=== PATIENT | female | born 1980 | race Caucasian/White ===

== ENCOUNTER 2016-04-15 16:26 | Emergency (ER) | payer MEDICAID ==
--- NOTE | 2016-04-15 16:49 | PD ---
HPI Chief Complaint decels Date Seen: Apr 15, 2016 Time Seen: 16:31 (Csa Boykin MD R1) Travel History International Travel<30 Days: No Contact w/Intl Traveler<30Days: No (Cas Boykin MD R1) History of Present Illness HPI 35 y/o at 39/4 weeks presents after being seen by her OB, Samira Blanc, and saw a variable decel on heart monitoring. Patient states she feels fine. Denies any other complaints/concerns. Denies loss of fluid, vaginal bleeding, contractions. Endorses movement. Denies headaches, changes in vision, leg swelling. Denies chest pain, SOB, abdominal pain, leg pain. Para: 2 : 3 (Cas Boykin MD) History Past Medical History Medical History: Denies Significant Hx (Cas Boykin MD R1) Obstetric History Obstetric History Vaginal delivery, then past due dates No problems during this 2 babies born at term (Cas Boykin MD) Past Surgical History Narrative Surgical (Cas Boykin MD R1) Family History Family History: Negative (Cas Boykin MD) Social History Alcohol Use: No Tobacco Use: No Substance Abuse: No (Cas Boykin MD) Allergies-Medications (Allergen,Severity, Reaction): Coded Allergies: No Known Allergies (Unverified , 04/15/16) Home Meds No Active Prescriptions or Reported Meds Review of Systems General / Constitutional: Weight Gain, No: Fever, Chills Eyes: No: Blurred Vision, Visual changes HENT: No: Headaches, Vertigo Cardiovascular: No: Chest Pain or Discomfort, Palpitations, Syncope Respiratory: No: Cough, Short of Breath Gastrointestinal: No: Nausea, Vomiting, Diarrhea, Abdominal Pain, Constipation Genitourinary: No: Urgency, Frequency, Dysuria, Pelvic Pain, Discharge, Vaginal Bleeding Musculoskeletal: No: Limited ROM, Weakness Skin: No Rash, No Itching Neurologic: No: Weakness, Dizziness, Headache Psychiatric: No: Anxiety, Depression Endocrine: No: Heat Intolerance, Cold Intolerance Hematologic/Lymphatic: No Easy Bruising, No Lymph Node Enlargement (Cas Boykin MD R1) Physical Exam Narrative GENERAL: Well-nourished, well-developed patient. SKIN: Warm and dry. HEAD: Normocephalic and atraumatic. EYES: No scleral icterus. No injection or drainage. ENT: No nasal drainage noted. Mucous membranes pink. Airway patent. NECK: Supple, trachea midline. No JVD. CARDIOVASCULAR: Regular rate and rhythm without murmurs, gallops, or rubs. RESPIRATORY: Breath sounds equal bilaterally. No accessory muscle use. ABDOMEN/GI: Abdomen soft, non-tender, bowel sounds present, no rebound, no guarding Gravid to 39 weeks size Fundal Height: 39 FHT's: Category: [-] Baseline: [-] Reactive: [-] Variability: [-] Decels: [-] EXTREMITIES: No cyanosis or edema. BACK: Nontender without obvious deformity. No CVA tenderness. NEUROLOGICAL: Awake and alert. Motor and sensory grossly within normal limits. Five out of 5 muscle strength in all muscle groups. Normal speech. (Cas Boykin MD R1) Data Data Vital Signs Reviewed: Yes (Cas Boykin MD R1) [facility] Medical Record Reviewed: Yes Interpretation(s) 35 y/o at 39/4 presents from OB office for decel. - heart monitoring for 1 hour - Labor status - Stress test - Hydration - Monitor vitals (Cas Boykin MD R1) Scripts No Active Prescriptions or Reported Meds Attestation Patient seen and examined with the resident under direct supervision agree with the assessment and plan. I suggested to the patient that she needs to be admitted for induction of labor, as per the latest ultrasound the EDC is 1 09/07 consistent with 40 weeks and 6 days of gestation , as per today's ultrasound the fetus measures small for gestational age. Vaginal exam shows cervix is 2 cm dilated 50% efface and -2 station, posterior. Patient is having occasional contractions, the need for induction of labor with Pitocin was discussed with the patient however the patient declined, patient is is instructed to return to labor and delivery if increased contractions, cramping, leakage of fluids, vaginal bleeding, or decreased movements. She is instructed to drink plenty of fluids, keep office appointment as scheduled and monitor kick counts. (Thomas Bryant MD) Cas Boykin MD R1 Apr 15, 2016 16:49 Thomas Bryant MD Apr 15, 2016 17:55
[2016-04-15 17:04] VITALS: BP 120/77; PULSE 103
== END 2016-04-15 18:32 | disposition home or self-care (01) ==
LOC: HOBED 16:26 → UNDOADMIN 17:24 → H2EA 17:24 → HOBED 18:32
DX: O76 Abnormality in fetal heart rate and rhythm complicating labor and delivery (principal); Z3A.34 34 weeks gestation of pregnancy
CPT/HCPCS: 59025

== ENCOUNTER 2016-04-20 08:11 | Inpatient (IN) | payer MEDICAID ==
--- NOTE | 2016-04-20 08:39 | PD ---
HPI Chief Complaint water broke Date Seen: Apr 20, 2016 Time Seen: 08:21 (Cas Boykin MD R1) Travel History International Travel<30 Days: No Contact w/Intl Traveler<30Days: No (Cas Boykin MD R1) History of Present Illness HPI 35 y/o at 40/2 weeks presents after she states her water broke this morning. At 0640 this morning, she states her water broke, has been a slow leak. 30 minutes later, she states she started having occasional contractions. Denies vaginal bleeding. Endorses movement. Denies other concerns/complaints. Follows Samira Blanc for OB. Had appointment on Tuesday, where she states that she was checked at 2-3cm. Denies headaches, changes in vision, leg pain. Denies chest pain, SOB, leg pain. Para: 2 : 3 (Cas Boykin MD R1) History Past Medical History Medical History: Denies Significant Hx (Cas Boykin MD R1) Obstetric History Obstetric History Vaginal delivery; No problems with this Both babies born at term (Cas Boykin MD R1) Past Surgical History Narrative Surgical (Cas Boykin MD R1) Family History Family History: Negative (Cas Boykin MD R1) Social History Alcohol Use: No Tobacco Use: No Substance Abuse: No (Cas Boykin MD R1) Allergies-Medications (Allergen,Severity, Reaction): Coded Allergies: No Known Allergies (Unverified , 04/19/16) Home Meds Active Scripts Simethicone 80 Mg Chw80 Mg PO QID PRN (FLATULENCE) #30 EA Prov:Toñito Ochoa MD R2 04/23/16 Sennosides-Docusate Sodium (Senna Plus 8.6-50 mg)1 Tab Tab2 Tab PO Q12H PRN ( CONSTIPATION) #30 TAB Prov:Toñito Ochoa MD R2 04/23/16 Oxycodone-Acetaminophen 5-325 mg Tab1 Tab PO Q4H PRN (pain) #30 TAB Prov:Toñito Ochoa MD R2 04/23/16 Ibuprofen 600 Mg [id number] Mg PO Q6H PRN ( CRAMPING) #30 TAB Prov:Toñito Ochoa MD R2 04/23/16 Review of Systems General / Constitutional: Weight Gain, No: Fever, Weight Loss, Chills Eyes: No: Blurred Vision, Visual changes HENT: No: Headaches, Lightheadedness Cardiovascular: No: Irregular Rhythm, Chest Pain or Discomfort, Palpitations, Edema Respiratory: No: Cough, Short of Breath Gastrointestinal: No: Nausea, Vomiting, Diarrhea, Abdominal Pain, Constipation Genitourinary: Pelvic Pain, No: Urgency, Frequency, Dysuria, Discharge, Vaginal Bleeding Musculoskeletal: No: Limited ROM, Weakness Skin: No Rash, No Itching Neurologic: No: Weakness, Dizziness, Syncope Psychiatric: No: Anxiety, Depression Endocrine: No: Heat Intolerance, Cold Intolerance Hematologic/Lymphatic: No Easy Bruising, No Lymph Node Enlargement (Cas Boykin MD R1) Physical Exam Narrative GENERAL: Well-nourished, well-developed patient. SKIN: Warm and dry. HEAD: Normocephalic and atraumatic. EYES: No scleral icterus. No injection or drainage. ENT: No nasal drainage noted. Mucous membranes pink. Airway patent. NECK: Supple, trachea midline. No JVD. CARDIOVASCULAR: Regular rate and rhythm without murmurs, gallops, or rubs. RESPIRATORY: Breath sounds equal bilaterally. No accessory muscle use. ABDOMEN/GI: Abdomen soft, non-tender, bowel sounds present, no rebound, no guarding Gravid to 40 weeks size Fundal Height: 40 GENITOURINARY: Dilatation: 5 Effacement: 80% Station: -2 Presentation: vertex Membranes: ruptured. meconium stained Uterine Contractions: occasional FHT's: Category: 3 Baseline: 130 Reactive: yes Variability: moderate Decels: variable decels EXTREMITIES: No cyanosis or edema. BACK: Nontender without obvious deformity. No CVA tenderness. NEUROLOGICAL: Awake and alert. Motor and sensory grossly within normal limits. Five out of 5 muscle strength in all muscle groups. Normal speech. (Cas Boykin MD R1) Data Data Orders Vital Signs (Adult) .ON ADMISSION (04/20/16 08:26) ^ Labor Status (04/20/16 08:26) Pamg-1 Test .ONCE (04/20/16 08:26) (Csa Boykin MD R1) [facility] Medical Record Reviewed: Yes Interpretation(s) 35 y/o at 40/2 weeks presents with loss of fluids 1) IUP with possible ROM - Amniosure - heart monitoring - Monitor vitals Narrative Course / MDM Meconium stained fluid. On heart tracing, several variable decels. Category 3 tracing. Will admit and going to stat for concerning FHT (Cas Boykin MD R1) Diagnosis Diagnosis: Primary Impression: Variable heart rate decelerations, antepartum Scripts Simethicone 80 Mg Chw80 Mg PO QID PRN (FLATULENCE) #30 EA Prov:Toñito Ochoa MD R2 04/23/16 Sennosides-Docusate Sodium (Senna Plus 8.6-50 mg)1 Tab Tab2 Tab PO Q12H PRN ( CONSTIPATION) #30 TAB Prov:Toñito Ochoa MD R2 04/23/16 Oxycodone-Acetaminophen 5-325 mg Tab1 Tab PO Q4H PRN (pain) #30 TAB Prov:Toñito Ochoa MD R2 04/23/16 Ibuprofen 600 Mg [id number] Mg PO Q6H PRN ( CRAMPING) #30 TAB Prov:Toñito Ochoa MD R2 04/23/16 Attestation Patient seen and evaluated with the resident under direct supervision, I agree with the assessment and plan. (Thomas Bryant MD) Cas Boykin MD R1 Apr 20, 2016 08:39 Thomas Bryant MD Apr 25, 2016 20:36
[2016-04-20] MEDS ORDERED: LACTATED RINGER'S 1000 ML INJ 1,000 ML IV SCH ×3 (08:56→15:59)
[2016-04-20] MEDS ORDERED: LACTATED RINGER'S 1000 ML INJ 1,000 ML IV PRN (08:56)
[2016-04-20] MEDS ORDERED: SODIUM CHLORID 0.9% 500 ML INJ 500 ML IV PRN (09:00)
[2016-04-20] MEDS ORDERED: LIDOCAINE HCL 1% 50 ML VIAL I-DERMAL PRN (09:00)
[2016-04-20] MEDS ORDERED: OXYTOCIN 30 UNITS-500ML PREMIX 500 ML IV ONE ×2 (09:00→11:00)
[2016-04-20] MEDS ORDERED: CITRIC ACID-SODIUM CITRATE LIQ 30 ML UDC PO SCH (09:00)
[2016-04-20] MEDS ORDERED: LIDOCAINE HCL 1% 50 ML VIAL INFIL PRN (09:00)
[2016-04-20] MEDS ORDERED: MINERAL OIL 10 ML VIAL TOPICAL PRN (09:00)
[2016-04-20] MEDS ORDERED: SODIUM CHLOR 0.9% 1000 ML INJ 1,000 ML IV PRN (09:16)
[2016-04-20] MEDS ORDERED: OXYTOCIN 10 UNIT/ML AMP ONE (09:48)
[2016-04-20] MEDS ORDERED: MORPHINE SULFATE PF 5 MG/10 ML VIAL ONE (09:48)
[2016-04-20] MEDS ORDERED: ACETAMINOPHEN 1000 MG/100 ML VIAL IV ONE ×2 (09:48→11:00)
[2016-04-20] MEDS ORDERED: ONDANSETRON HCL 4 MG/2 ML VIAL ONE (09:48)
[2016-04-20] MEDS ORDERED: EPIDURAL-NALOXONE HCL 0.4 MG/ML AMP IV PRN (09:50)
[2016-04-20] MEDS ORDERED: EPIDURAL-DIPHENHYDRAMINE HCL 50 MG CAP PO PRN (09:50)
[2016-04-20] MEDS ORDERED: EPIDURAL-DIPHENHYDRAMINE HCL 50 MG/ML VIAL IV PUSH PRN (09:50)
[2016-04-20] MEDS ORDERED: EPIDURAL-NO SYSTEMIC NARCOTICS XX PRN (09:50)
[2016-04-20] MEDS ORDERED: EPIDURAL-DO NOT ADMINISTER ANTICOAGULANTS XX PRN (09:50)
[2016-04-20 09:59] LABS: AUTOMATED NEUTROPHIL # 8.2 TH/MM3 (1.8-7.7); BASOPHIL # 0.1 TH/MM3 (0-0.2); BASOPHIL % 0.7 % (0.0-2.0); EOSINOPHIL % 0.2 % (0.0-4.0); HEMATOCRIT 34.7 % (35.0-46.0); LYMPHOCYTE # 1.9 TH/MM3 (1.0-4.8); MEAN CELL VOLUME 88.1 FL (80.0-100.0); MEAN CORPUSCULAR HGB CONC 31.8 % (32.0-36.0); MONO % 7.5 % (0.0-8.0); NEUT % 74.6 % (16.0-70.0); PLATELET COUNT 184 TH/MM3 (150-450); RED BLOOD COUNT 3.94 MIL/MM3 (4.00-5.30); RED CELL DISTRIBUTION WIDTH 14.8 % (11.6-17.2)
[2016-04-20] MEDS ORDERED: LACTATED RINGER'S 1000 ML INJ 1,000 ML IV ONE (10:00)
[2016-04-20 10:03] LABS: HEMO FLAGS AUTO DIFF
[2016-04-20 10:29] LABS: BANDS 5 % (0-6); EOSINOPHILS 1 % (0-4); NEUTROPHIL # MANUAL DIFF 7.9 TH/MM3 (1.8-7.7); POLYS (SEG NEUTROPHILS) 67 % (16-70); WBC DIFF SAMPLE 100
[2016-04-20 10:30] LABS: PLATELET ESTIMATE SMEAR NORMAL (NORMAL); PLATELET MORPHOLOGY ENLARGED (NORMAL); SCAN/DIFF FINAL DIFF MANUAL
[2016-04-20] MEDS ORDERED: ceFAZolin 2 GM PREMIX 50 ML IV SCH (10:45)
[2016-04-20] MEDS ORDERED: SODIUM CHLORIDE 0.9% FLUSH 5 ML FLUSH IV PRN (11:00)
[2016-04-20] MEDS ORDERED: SODIUM CHLORIDE 0.9% FLUSH 5 ML FLUSH IV SCH (11:00)
[2016-04-20] MEDS ORDERED: SIMETHICONE 80 MG CHEWABLE TAB PO PRN (11:00)
[2016-04-20] MEDS ORDERED: ONDANSETRON HCL 4 MG/2 ML VIAL IV PUSH PRN (11:00)
[2016-04-20] MEDS ORDERED: ACETAMINOPHEN 325 MG TAB PO PRN (11:00)
--- NOTE | 2016-04-20 11:26 | PD.OP ---
Operative Report Date of Surgery: Apr 20, 2016 Preoperative Diagnosis: (1) 40 weeks gestation of (2) Non-reassuring heart rate or rhythm affecting mother (3) Thick meconium stained amniotic fluid (4) PROM with onset of labor within 24 hours of rupture (5) History of section, low transverse 35-year-old at 40 weeks and 2 days of gestation in active labor Premature rupture of membranes History of previous section 1, desires TOLAC Nonreassuring heart tracing Thick meconium stained amniotic fluid Postoperative Diagnosis: (1) 40 weeks gestation of (2) Non-reassuring heart rate or rhythm affecting mother (3) Thick meconium stained amniotic fluid (4) PROM with onset of labor within 24 hours of rupture (5) History of section, low transverse (6) Umbilical cord around body Term at 40 weeks and 2 days of gestation in active labor Nonreassuring heart tracing History of previous section 1, desires TOLAC Thick meconium-stained amniotic fluid Premature rupture of membranes Umbilical cord around the body Procedure: Repeat low segment transverse section via Pfannenstiel skin incision Anesthesia: Spinal Anesthesiologist: Hema padilla (CENA) Surgeon: Thomas Bryant M.D Yarn Spinner(s): Nancy (surgical aides teacher) Resident Surgeon: None Operation and Findings: Estimated blood loss: 600 mL, urine output is 100 mL of clear urine at the end of the procedure, IV fluids: 1500 mL of Ringer's lactate Complications: None Specimens: Placenta removed and sent to pathology. Findings: Live male in cephalic presentation, Apgars 8 at 1 minute and 9 at 5 minutes, nursery team present at delivery, weight 3605 g, 7 lbs. 15oz. Time of delivery 10:05 hours. Normal uterus, tubes, and ovaries. Indications: 35-year-old 002 at 40 weeks and 2 day of gestation with history of previous section, presented to labor and delivery with complaints of leakage of fluid, examination shows cervix is 5 cm dilated, 80% effaced at -2 station, patient is grossly ruptured with meconium amniotic fluid and trever every 2-3 at minutes with repetitive variable decelerations to the 60s with every contractions with no recovery to the baseline despite resuscitative measures consistent with category 3 tracing. Patient had desired trial of labor after however due to repetitive variable decelerations/ category 3 tracing the need for a repeat section was discussed with the patient and her The risks,benefits, indications and alternatives were reviewed with the patient including but not limited to increased risks of bleeding, infection, damage to the bladder, bowel, ureters, blood vessels and nerves. Increased risks of DVT, PE and possible were discussed, all questions were answered and informed consent was obtained. Procedures: After informed consent was obtained the patient was taken to the operating room where spinal anesthesia was obtained without difficulty. She was then prepped and draped in the normal sterile fashion in the dorsal supine position with a leftward tilt. A repeat Pfannenstiel skin incision was then made with the scalpel along the previous line of incision and carried through to the underlying layer of fascia with the Bovie. The fascia was incised in the midline and incision extended laterally with the Meneses scissors. The superior aspect of the fascial incision was then grasped with Mary clamps, elevated, and the underlying rectus muscles dissected off bluntly. Attention was then turned to the inferior aspect of this incision which in in a similar fashion was grasped, tented up with the Mary clamps and the rectus muscle dissected off bluntly. The rectus muscles were then in the midline and the peritoneum identified, tented up, and entered sharply with the Metzenbaum scissors. The peritoneal incision was then extended superiorly and inferiorly with good visualization of the bladder. The bladder blade was then inserted and the vesicouterine peritoneum identified, grasped with the pickups, and entered sharply with the Metzenbaum scissors. This incision was then extended laterally and the bladder flap created digitally. The bladder blade was then reinserted and the lower uterine segment incised in a transverse fashion with the scalpel. The uterine incision was then extended laterally with the bandage scissors. The bladder blade was removed and the 's head was delivered atraumatically. Body cord was noted as well as thick meconium amniotic fluid. The mouth and nose were suctioned with a bulb suction and the cord was clamped and cut. The was handed off to the waiting nursing team. Cord blood was obtained. The placenta was then removed manually, the uterus was externalized and cleared of all clots and debris. The uterine incision was repaired with 0 Vicryl in a running locked fashion. A second layer of the same suture was used to obtain excellent hemostasis. The bladder flap was repaired with 3-0 Vicryl in a running stitch. Excellent hemostasis was noted, the uterus and the tubes were then returned to the abdomen. The gutters were cleared of all clots and debris and the peritoneum was closed with the 2-0 chromic suture. The fascia was reapproximated with 0 Vicryl in a running fashion. The skin was closed in a subcuticular fashion using 3-0 Monocryl. Dermabond was applied to the incision as well as Steri-Strips. The patient tolerated the procedure well. All sponges, laps, needle and instrument counts were correct 2. The patient received 2 g of Ancef prior to surgery. The patient was taken to the recovery area in stable condition. Thomas Bryant MD Apr 20, 2016 11:26
--- NOTE | 2016-04-20 11:44 | HHI.HP ---
History & Physical H&P HPI Chief Complaint water broke Date Seen: Apr 20, 2016 Time Seen: 08:21 Travel History International Travel<30 Days: No Contact w/Intl Traveler<30Days: No History of Present Illness HPI 35 y/o at 40/2 weeks presents after she states her water broke this morning. At 0640 this morning, she states her water broke, has been a slow leak. 30 minutes later, she states she started having occasional contractions. Denies vaginal bleeding. Endorses movement. Denies other concerns/complaints. Follows Samira Blanc for OB. Had appointment on Tuesday, where she states that she was checked at 2-3cm. Denies headaches, changes in vision, leg pain. Denies chest pain, SOB, leg pain. Para: 2 : 3 History (Limited) History Past Medical History Medical History: Denies Significant Hx Obstetric History Obstetric History Vaginal delivery; No problems with this Both babies born at term Past Surgical History Narrative Surgical Family History Family History: Negative Social History Alcohol Use: No Tobacco Use: No Substance Abuse: No Allergies-Medications Allergies-Medications (Allergen,Severity, Reaction): Coded Allergies: No Known Allergies (Unverified , 04/19/16) Home Meds No Active Prescriptions or Reported Meds ROS Review of Systems General / Constitutional: Weight Gain, No: Fever, Weight Loss, Chills Eyes: No: Blurred Vision, Visual changes HENT: No: Headaches, Lightheadedness Cardiovascular: No: Irregular Rhythm, Chest Pain or Discomfort, Palpitations, Edema Respiratory: No: Cough, Short of Breath Gastrointestinal: No: Nausea, Vomiting, Diarrhea, Abdominal Pain, Constipation Genitourinary: Pelvic Pain, No: Urgency, Frequency, Dysuria, Discharge, Vaginal Bleeding Musculoskeletal: No: Limited ROM, Weakness Skin: No Rash, No Itching Neurologic: No: Weakness, Dizziness, Syncope Psychiatric: No: Anxiety, Depression Endocrine: No: Heat Intolerance, Cold Intolerance Hematologic/Lymphatic: No Easy Bruising, No Lymph Node Enlargement Physical Exam Physical Exam Narrative GENERAL: Well-nourished, well-developed patient. SKIN: Warm and dry. HEAD: Normocephalic and atraumatic. EYES: No scleral icterus. No injection or drainage. ENT: No nasal drainage noted. Mucous membranes pink. Airway patent. NECK: Supple, trachea midline. No JVD. CARDIOVASCULAR: Regular rate and rhythm without murmurs, gallops, or rubs. RESPIRATORY: Breath sounds equal bilaterally. No accessory muscle use. ABDOMEN/GI: Abdomen soft, non-tender, bowel sounds present, no rebound, no guarding Gravid to 40 weeks size Fundal Height: 40 GENITOURINARY: Dilatation: 5 Effacement: 80% Station: -2 Presentation: vertex Membranes: ruptured. meconium stained Uterine Contractions: occasional FHT's: Category: 3 Baseline: 130 Reactive: yes Variability: moderate Decels: variable decels EXTREMITIES: No cyanosis or edema. BACK: Nontender without obvious deformity. No CVA tenderness. NEUROLOGICAL: Awake and alert. Motor and sensory grossly within normal limits. Five out of 5 muscle strength in all muscle groups. Normal speech. Data Data Data Orders Vital Signs (Adult) .ON ADMISSION (04/20/16 08:26) ^ Labor Status (04/20/16 08:26) Pamg-1 Test .ONCE (04/20/16 08:26) [facility] Medical Record Reviewed: Yes Interpretation(s) 35 y/o at 40/2 weeks presents with loss of fluids 1) IUP with possible ROM - Amniosure - heart monitoring - Monitor vitals Narrative Course / MDM Meconium stained fluid. On heart tracing, several variable decels. Category 3 tracing. Will admit and going to stat for concerning FHT Diagnosis Diagnosis: Primary Impression: Variable heart rate decelerations, antepartum Scripts No Active Prescriptions or Reported Meds (Cas Boykin MD R1) Attestation Patient seen and evaluated with the resident under direct supervision, I agree with the assessment and plan. (Thomas Bryant MD) Cas Boykin MD R1 Apr 20, 2016 11:43 Thomas Bryant MD Apr 25, 2016 20:48
[2016-04-20] MEDS ORDERED: KETOROLAC TROMETHAMINE 60 MG/2 ML (IM) VIAL IM PRN (12:00)
[2016-04-20] MEDS: ACETAMINOPHEN 1000 MG/100 ML VIAL IV SCH (17:43)
[2016-04-20] MEDS ORDERED: OXYTOCIN 30 UNITS-500ML PREMIX 500 ML IV PRN (21:00)
[2016-04-21] MEDS: ACETAMINOPHEN 1000 MG/100 ML VIAL IV SCH ×2 (02:00→10:00)
[2016-04-21 06:02] LABS: AUTOMATED NEUTROPHIL # 8.7 TH/MM3 (1.8-7.7); BASOPHIL % 0.2 % (0.0-2.0); EOSINOPHIL # 0.1 TH/MM3 (0-0.4); EOSINOPHIL % 0.5 % (0.0-4.0); HEMATOCRIT 25.9 % (35.0-46.0); HEMO FLAGS DIFF FINAL; LYMPH % 14.7 % (9.0-44.0); LYMPHOCYTE # 1.7 TH/MM3 (1.0-4.8); MEAN CELL VOLUME 87.6 FL (80.0-100.0); MEAN CORPUSCULAR HGB CONC 33.1 % (32.0-36.0); MONO % 10.6 % (0.0-8.0); PLATELET COUNT 143 TH/MM3 (150-450); RED BLOOD COUNT 2.95 MIL/MM3 (4.00-5.30); WHITE BLOOD COUNT 11.7 TH/MM3 (4.0-11.0)
[2016-04-21] MEDS: IBUPROFEN 600 MG TAB PO PRN ×2 (06:13→17:25)
[2016-04-21] MEDS: DOCUSATE SODIUM 50 MG/SENNA 8.6 MG TAB PO PRN ×2 (06:14→18:25)
[2016-04-21] MEDS: oxyCODONE/ACETAMINOPHEN 5 MG/325 MG TAB PO PRN ×4 (06:14→21:17)
--- NOTE | 2016-04-21 08:42 | HHI.OB ---
Subjective Post Operative Day: 1 Remarks Postoperative day number 1. AFVSS overnight. Pain controlled with medications. Incision not draining. Decreased lochia. Denies dysuria. No breast tenderness. She is feeding the baby via breast. Appetite good. No nausea or vomiting. Endorses flatus. Denies bowel movement. Ambulating well. Denies calf pain, shortness of breath, or cough. Otherwise, she is doing well this morning and has no other complaints. Objective Vitals/I&O Vital Signs Date Time Temp Pulse Resp B/P Pulse Ox O2 Delivery O2 Flow Rate FiO2 04/21/16 02:16 Result Diagram: 04/21/16 0527 Objective Remarks GENERAL: Well-nourished, well-developed patient. CARDIOVASCULAR: Regular rate and rhythm without murmurs, gallops, or rubs. RESPIRATORY: Breath sounds equal bilaterally. No accessory muscle use. ABDOMEN/GI: Abdomen soft, non-tender, bowel sounds present. Incision: Clean, dry and intact. Fundus: Firm, non-tender at umbilicus. GENITOURINARY: Light to moderate bleeding. EXTREMITIES: No cyanosis or edema, non-tender, without signs of DVT. Medications and IVs Current Medications Medications (Trade) Dose Ordered Sig/Ciarra Route Start Time Stop Time Status Last Admin Lactated Ringer's 1,000 ml @ 3,000 mls/hr Q20M PRN IV 04/20/16 08:56 Sodium Chloride 500 ml @ 1,000 mls/hr ONCE PRN IV 04/20/16 09:00 04/21/16 08:59 (NS 1000 ml Inj) 1,000 ml @ 100 mls/hr Q10H PRN IV 04/20/16 09:16 (fentaNYL INJ) 50 mcg Q1H PRN IV PUSH 04/20/16 09:00 (fentaNYL INJ) 100 mcg Q1H PRN IV PUSH 04/20/16 09:00 Mineral Oil 10 ml 10 ml UNSCH PRN TOPICAL 04/20/16 09:00 Lactated Ringer's 1,000 ml @ 150 mls/hr Q6H40M IV 04/20/16 10:00 04/20/16 10:00 (Lr 1000 ml Inj) 1,000 ml @ 100 mls/hr Q10H IV 04/20/16 15:59 04/21/16 11:58 04/20/16 17:44 (NS Flush) 2 ml BID IV 04/20/16 11:00 (NS Flush) 2 ml UNSCH PRN IV 04/20/16 11:00 (Mylicon Chew) 80 mg QID PRN PO 04/20/16 11:00 (Tylenol) 650 mg Q6H PRN PO 04/20/16 11:00 (Motrin) 600 mg Q6H PRN PO 04/20/16 11:00 04/21/16 06:13 (Toradol Inj) 30 mg Q6H PRN IM 04/20/16 12:00 04/21/16 11:59 (Percocet 5-325 Mg) 1 tab Q4H PRN PO 04/20/16 11:00 (Percocet 5-325 Mg) 2 tab Q4H PRN PO 04/20/16 11:00 04/21/16 06:14 (Charla-Colace) 2 tab Q12H PRN PO 04/20/16 11:00 04/21/16 06:14 (M-M-R Ii Inj) 0.5 ml ONCE ONCE SQ 04/21/16 16:00 04/21/16 16:01 (Boostrix Inj) 0.5 ml ONCE ONCE IM 04/21/16 16:00 04/21/16 16:01 (Zofran Inj) 4 mg Q6H PRN IV PUSH 04/20/16 11:00 (Ofirmev Inj) 1,000 mg Q8H IV 04/20/16 18:00 04/21/16 10:01 04/21/16 02:00 Miscellaneous Information NO SYSTEMIC NARCOTICS TO BE GIVEN FO... UNSCH PRN XX 04/20/16 09:50 04/21/16 09:49 (Narcan Inj) 0.4 mg UNSCH PRN IV 04/20/16 09:50 04/21/16 09:49 (Benadryl Inj) 25 mg Q6H PRN IV PUSH 04/20/16 09:50 04/21/16 09:49 (Benadryl) 50 mg Q6H PRN PO 04/20/16 09:50 04/21/16 09:49 Miscellaneous Information ALL NURSING DEPARTMENTS UNSCH PRN XX 04/20/16 09:50 04/21/16 09:49 (Flu (Quadrivalent) Vaccine Inj) 0.5 ml ONCE ONCE IM 04/21/16 10:00 04/21/16 10:01 Assessment/Plan Assessment and Plan 35y/o female who is POD#1 s/p CXN. -Continue routine care. -Percocet and Motrin PRN pain. -Encouraged OOB. Advised pelvic rest for 6 wks. Will need a f/u appt. in 1 wk for incision check. -Re: ctrl, she is undecided -D/c in 1-2 more days. wdw OB attending Discharge Planning 1-2 days Cas Boykin MD R1 Apr 21, 2016 08:42
--- NOTE | 2016-04-21 09:10 | HHI.OB ---
Subjective Post Operative Day: 1 Remarks This patient is postop day 1 from repeat for nonreassuring heart rate tracing. She is currently doing well and is just dry bowel sounds somewhat decreased uterus at the umbilicus. The patient to have progressive advancement diet and ambulation and have a postop assessment in the usual fashion, she was seen today with the family medicine residents and agree with their assessment and plan Objective Vitals/I&O Vital Signs Date Time Temp Pulse Resp B/P Pulse Ox O2 Delivery O2 Flow Rate FiO2 04/21/16 02:16 Result Diagram: 04/21/16 0527 Objective Remarks GENERAL: Well-nourished, well-developed patient. CARDIOVASCULAR: Regular rate and rhythm without murmurs, gallops, or rubs. RESPIRATORY: Breath sounds equal bilaterally. No accessory muscle use. ABDOMEN/GI: Abdomen soft, non-tender, bowel sounds present. Incision: Clean, dry and intact. Fundus: Firm, non-tender at umbilicus. GENITOURINARY: Light to moderate bleeding. EXTREMITIES: No cyanosis or edema, non-tender, without signs of DVT. Medications and IVs Current Medications Medications (Trade) Dose Ordered Sig/Ciarra Route Start Time Stop Time Status Last Admin Lactated Ringer's 1,000 ml @ 3,000 mls/hr Q20M PRN IV 04/20/16 08:56 (NS 1000 ml Inj) 1,000 ml @ 100 mls/hr Q10H PRN IV 04/20/16 09:16 (fentaNYL INJ) 50 mcg Q1H PRN IV PUSH 04/20/16 09:00 (fentaNYL INJ) 100 mcg Q1H PRN IV PUSH 04/20/16 09:00 Mineral Oil 10 ml 10 ml UNSCH PRN TOPICAL 04/20/16 09:00 Lactated Ringer's 1,000 ml @ 150 mls/hr Q6H40M IV 04/20/16 10:00 04/20/16 10:00 (Lr 1000 ml Inj) 1,000 ml @ 100 mls/hr Q10H IV 04/20/16 15:59 04/21/16 11:58 04/20/16 17:44 (NS Flush) 2 ml BID IV 04/20/16 11:00 (NS Flush) 2 ml UNSCH PRN IV 04/20/16 11:00 (Mylicon Chew) 80 mg QID PRN PO 04/20/16 11:00 (Tylenol) 650 mg Q6H PRN PO 04/20/16 11:00 (Motrin) 600 mg Q6H PRN PO 04/20/16 11:00 04/21/16 06:13 (Toradol Inj) 30 mg Q6H PRN IM 04/20/16 12:00 04/21/16 11:59 (Percocet 5-325 Mg) 1 tab Q4H PRN PO 04/20/16 11:00 (Percocet 5-325 Mg) 2 tab Q4H PRN PO 04/20/16 11:00 04/21/16 06:14 (Charla-Colace) 2 tab Q12H PRN PO 04/20/16 11:00 04/21/16 06:14 (M-M-R Ii Inj) 0.5 ml ONCE ONCE SQ 04/21/16 16:00 04/21/16 16:01 (Boostrix Inj) 0.5 ml ONCE ONCE IM 04/21/16 16:00 04/21/16 16:01 (Zofran Inj) 4 mg Q6H PRN IV PUSH 04/20/16 11:00 (Ofirmev Inj) 1,000 mg Q8H IV 04/20/16 18:00 04/21/16 10:01 04/21/16 02:00 Miscellaneous Information NO SYSTEMIC NARCOTICS TO BE GIVEN FO... UNSCH PRN XX 04/20/16 09:50 04/21/16 09:49 (Narcan Inj) 0.4 mg UNSCH PRN IV 04/20/16 09:50 04/21/16 09:49 (Benadryl Inj) 25 mg Q6H PRN IV PUSH 04/20/16 09:50 04/21/16 09:49 (Benadryl) 50 mg Q6H PRN PO 04/20/16 09:50 04/21/16 09:49 Miscellaneous Information ALL NURSING DEPARTMENTS UNSCH PRN XX 04/20/16 09:50 04/21/16 09:49 (Flu (Quadrivalent) Vaccine Inj) 0.5 ml ONCE ONCE IM 04/21/16 10:00 04/21/16 10:01 Assessment/Plan Assessment and Plan 35y/o female who is POD#1 s/p CXN. -Continue routine care. -Percocet and Motrin PRN pain. -Encouraged OOB. Advised pelvic rest for 6 wks. Will need a f/u appt. in 1 wk for incision check. -Re: ctrl, she is undecided -D/c in 1-2 more days. wdw OB attending Discharge Planning 1-2 days Jadon Mendosa II, MD Apr 21, 2016 09:10
[2016-04-21] MEDS ORDERED: INFLUENZA VIRUS VACCINE (QUADRIVALENT) 0.5 ML SYR IM ONE (10:00)
[2016-04-21] MEDS ORDERED: MEASLES, MUMPS, RUBELLA VACCINE 0.5 ML VIAL SQ ONE (16:00)
[2016-04-21] MEDS ORDERED: DIPHTH/TETANUS/ACEL PERTUSSIS (BOOSTER) 0.5 ML VIAL/PFS IM ONE (16:00)
[2016-04-22] MEDS: IBUPROFEN 600 MG TAB PO PRN ×3 (00:17→15:47)
[2016-04-22] MEDS: oxyCODONE/ACETAMINOPHEN 5 MG/325 MG TAB PO PRN ×3 (06:41→20:02)
--- NOTE | 2016-04-22 08:56 | HHI.OB ---
Subjective Post Operative Day: 2 Remarks Postoperative day number 2. AFVSS overnight. Pain controlled with medications. Incision not draining. Decreased lochia. Denies dysuria. No breast tenderness. She is feeding the baby via breast. Appetite good. No nausea or vomiting. Endorses flatus. Endorses bowel movement. Ambulating well. Denies calf pain, shortness of breath, or cough. Otherwise, she is doing well this morning and has no other complaints. Objective Result Diagram: 04/21/16 0590 Objective Remarks GENERAL: Well-nourished, well-developed patient. CARDIOVASCULAR: Regular rate and rhythm without murmurs, gallops, or rubs. RESPIRATORY: Breath sounds equal bilaterally. No accessory muscle use. ABDOMEN/GI: Abdomen soft, non-tender, bowel sounds present. Incision: Clean, dry and intact. Fundus: Firm, non-tender at umbilicus. GENITOURINARY: Light to moderate bleeding. EXTREMITIES: No cyanosis or edema, non-tender, without signs of DVT. Medications and IVs Current Medications Medications (Trade) Dose Ordered Sig/Ciarra Route Start Time Stop Time Status Last Admin Lactated Ringer's 1,000 ml @ 3,000 mls/hr Q20M PRN IV 04/20/16 08:56 (NS 1000 ml Inj) 1,000 ml @ 100 mls/hr Q10H PRN IV 04/20/16 09:16 (fentaNYL INJ) 50 mcg Q1H PRN IV PUSH 04/20/16 09:00 (fentaNYL INJ) 100 mcg Q1H PRN IV PUSH 04/20/16 09:00 Mineral Oil 10 ml 10 ml UNSCH PRN TOPICAL 04/20/16 09:00 (Lr 1000 ml Inj) 1,000 ml @ 150 mls/hr Q6H40M IV 04/20/16 10:00 04/20/16 10:00 (NS Flush) 2 ml BID IV 04/20/16 11:00 (NS Flush) 2 ml UNSCH PRN IV 04/20/16 11:00 (Mylicon Chew) 80 mg QID PRN PO 04/20/16 11:00 (Tylenol) 650 mg Q6H PRN PO 04/20/16 11:00 (Motrin) 600 mg Q6H PRN PO 04/20/16 11:00 04/22/16 08:00 (Percocet 5-325 Mg) 1 tab Q4H PRN PO 04/20/16 11:00 04/22/16 06:41 (Percocet 5-325 Mg) 2 tab Q4H PRN PO 04/20/16 11:00 04/21/16 10:54 (Charla-Colace) 2 tab Q12H PRN PO 04/20/16 11:00 04/21/16 18:25 (Zofran Inj) 4 mg Q6H PRN IV PUSH 04/20/16 11:00 Assessment/Plan Assessment and Plan 35y/o female who is POD#2 s/p CXN. -Continue routine care. -Percocet and Motrin PRN pain. -Encouraged OOB. Advised pelvic rest for 6 wks. Will need a f/u appt. in 1 wk for incision check. -Re: ctrl, she is undecided -D/c in 1-2 more days. wdw OB attending Discharge Planning 1-2 days Cas Boykin MD R1 Apr 22, 2016 08:55
[2016-04-22] MEDS: DOCUSATE SODIUM 50 MG/SENNA 8.6 MG TAB PO PRN (10:05)
[2016-04-23] MEDS: IBUPROFEN 600 MG TAB PO PRN ×3 (02:14→13:04)
[2016-04-23] MEDS: oxyCODONE/ACETAMINOPHEN 5 MG/325 MG TAB PO PRN ×2 (02:14→08:07)
[2016-04-23] MEDS ORDERED: IBUP-232 PO (07:10)
[2016-04-23] MEDS ORDERED: SENN1TAB PO (07:10)
[2016-04-23] MEDS ORDERED: SIME80CH PO (07:10)
[2016-04-23] MEDS ORDERED: OXYC1TAB63 PO (07:10)
--- NOTE | 2016-04-23 07:11 | HHI.DCPOC ---
Discharge Care Plan Diagnosis: (1) delivery delivered Goals to Promote Your Health * To prevent worsening of your condition and complications * To maintain your health at the optimal level Directions to Meet Your Goals Take your medications as prescribed Follow your dietary instruction Follow activity as directed Keep your appointments as scheduled Take your immunizations and boosters as scheduled If your symptoms worsen call your PCP, if no PCP go to Urgent Care Center or Emergency Room Smoking is Dangerous to Your Health. Avoid second hand smoke Call the 24-hour hour crisis hotline for domestic abuse at Toñito Ochoa MD R2 Apr 23, 2016 07:10
--- NOTE | 2016-04-23 07:24 | HHI.OB ---
Subjective Remarks Postoperative day number 3. AFVSS overnight. Pain controlled with medications. Incision not draining. Decreased lochia. Denies dysuria. No breast tenderness. She is feeding the baby via breast. Appetite good. No nausea or vomiting. Endorses flatus. Endorses bowel movement. Ambulating well. Denies calf pain, shortness of breath, or cough. Otherwise, she is doing well this morning and has no other complaints. (Toñito Ochoa MD R2) Objective Result Diagram: 04/21/16 0552 Objective Remarks GENERAL: Well-nourished, well-developed patient. CARDIOVASCULAR: Regular rate and rhythm without murmurs, gallops, or rubs. RESPIRATORY: Breath sounds equal bilaterally. No accessory muscle use. ABDOMEN/GI: Abdomen soft, non-tender, bowel sounds present. Incision: Clean, dry and intact. Fundus: Firm, non-tender at umbilicus. GENITOURINARY: Light to moderate bleeding. EXTREMITIES: No cyanosis or edema, non-tender, without signs of DVT. Medications and IVs Current Medications Medications (Trade) Dose Ordered Sig/Ciarra Route Start Time Stop Time Status Last Admin Lactated Ringer's 1,000 ml @ 3,000 mls/hr Q20M PRN IV 04/20/16 08:56 (NS 1000 ml Inj) 1,000 ml @ 100 mls/hr Q10H PRN IV 04/20/16 09:16 (fentaNYL INJ) 50 mcg Q1H PRN IV PUSH 04/20/16 09:00 (fentaNYL INJ) 100 mcg Q1H PRN IV PUSH 04/20/16 09:00 Mineral Oil 10 ml 10 ml UNSCH PRN TOPICAL 04/20/16 09:00 (Lr 1000 ml Inj) 1,000 ml @ 150 mls/hr Q6H40M IV 04/20/16 10:00 04/20/16 10:00 (NS Flush) 2 ml BID IV 04/20/16 11:00 (NS Flush) 2 ml UNSCH PRN IV 04/20/16 11:00 (Mylicon Chew) 80 mg QID PRN PO 04/20/16 11:00 (Tylenol) 650 mg Q6H PRN PO 04/20/16 11:00 (Motrin) 600 mg Q6H PRN PO 04/20/16 11:00 04/23/16 02:14 (Percocet 5-325 Mg) 1 tab Q4H PRN PO 04/20/16 11:00 04/23/16 02:14 (Percocet 5-325 Mg) 2 tab Q4H PRN PO 04/20/16 11:00 04/21/16 10:54 (Charla-Colace) 2 tab Q12H PRN PO 04/20/16 11:00 04/22/16 10:05 (Zofran Inj) 4 mg Q6H PRN IV PUSH 04/20/16 11:00 (Toñito Ochoa MD R2) Assessment/Plan Assessment and Plan 35y/o female who is POD#3 s/p CXN. -Continue routine care. -Percocet and Motrin PRN pain. -Encouraged OOB. Advised pelvic rest for 6 wks. Will need a f/u appt. in 1 wk for incision check. -Re: ctrl, she is undecided -D/c today wdw OB attending (Toñito Ochoa MD R2) Attending Attestation PPD #2 s/p Doing well well. PP and Post-op precautions F/u with [facility] in 1 weeks Patient seen and examined. D/w Dr. Ochoa and Dr. Boykin (Lorraine Gann MD) Toñito Ochoa MD R2 Apr 23, 2016 07:24 Lorraine Gann MD Apr 23, 2016 08:28
[2016-04-23] MEDS: DOCUSATE SODIUM 50 MG/SENNA 8.6 MG TAB PO PRN (13:04)
== END 2016-04-23 13:44 | disposition home or self-care (01) | DRG 766 ==
LOC: HOBED 08:11 → H2EB 09:13 → H1EA 12:28
PROVIDERS: ADMIT Obstetrics & Gynecology; ATTEND Obstetrics & Gynecology
PROC: 10D00Z1 Extraction of Products of Conception, Low, Open Approach (ICD-10-PCS; principal; 2016-04-20)
DX: O76 Abnormality in fetal heart rate and rhythm complicating labor and delivery (principal); O77.0 Labor and delivery complicated by meconium in amniotic fluid; O34.219 Maternal care for unspecified type scar from previous cesarean delivery; O42.02 Full-term premature rupture of membranes, onset of labor within 24 hours of rupture; O69.82X0 Labor and delivery complicated by other cord entanglement, without compression, not applicable or unspecified; Z37.0 Single live birth; Z3A.40 40 weeks gestation of pregnancy
CPT/HCPCS: 85007; 85025; 85027; 85461; 86850; 86900; 86901; 88307; 90384; 99285; J0131; J2274; J2405; J2590; J2790; J7120